=== PATIENT | male | born 1940 | race Caucasian/White ===

== ENCOUNTER → 2016-10-28 13:34 | Outpatient (CLI) | payer MEDICARE, BC ==
[2016-06-01 09:30] VITALS: BMI 22.9
[~2016-10-28 13:34] MED LIST: BENICAR40 MG PO; CATAPRES0.1 MG PO; MEDROL DOSE PACK4 MG PO
== END | disposition home or self-care (01) ==
LOC: D.US 13:34
DX: I65.23 Occlusion and stenosis of bilateral carotid arteries (principal)

== ENCOUNTER → 2017-12-09 13:33 | Outpatient (CLI) | payer MEDICARE, BC ==
[2016-06-01 09:30] VITALS: BMI 22.9
== END | disposition home or self-care (01) ==
LOC: D.US 13:33
DX: I65.23 Occlusion and stenosis of bilateral carotid arteries (principal)

== ENCOUNTER → 2018-12-14 09:27 | Outpatient (CLI) | payer MEDICARE, BC ==
[2016-06-01 09:30] VITALS: BMI 22.9
== END | disposition home or self-care (01) ==
LOC: D.US 09-21 11:30
PROVIDERS: ATTEND Internal Medicine Cardiovascular Disease
DX: I65.23 Occlusion and stenosis of bilateral carotid arteries (principal)

== ENCOUNTER → 2019-12-08 11:12 | Outpatient (CLI) | payer MEDICARE, BC ==
[2016-06-01 09:30] VITALS: BMI 22.9
== END | disposition home or self-care (01) ==
LOC: D.US 12-07 13:00
PROVIDERS: ATTEND Internal Medicine Cardiovascular Disease
DX: I65.23 Occlusion and stenosis of bilateral carotid arteries (principal)